=== PATIENT | female | born 1990 ===

== ENCOUNTER 2017-02-18 00:33 | Emergency (ER) | payer OTHER ==
[2017-02-18 01:14] LABS: Basophils % (Auto) 1.1 % (0.0-1.8); Eosinophils % (Auto) 2.3 % (0.0-4.3); Hematocrit 36.9 % (30.3-42.9); Hemoglobin 12.1 gm/dl (10.1-14.3); Mean Corpuscular HGB Conc 33 % (30-34); Mean Corpuscular Hemoglobin 28 pg (28-32); Mean Corpuscular Volume 84 fl (79-97); Platelet Count 304 K/mm3 (140-440); Red Blood Count 4.38 M/mm3 (3.65-5.03); Red Cell Distribution Width 13.1 % (13.2-15.2); White Blood Count 7.7 K/mm3 (4.5-11.0)
[2017-02-18 02:22] LABS: Bacteria,Urine 2+ /HPF (Negative); Bilirubin,Urine NEG (Negative); Blood,Urine LG (Negative); Ketones,Urine NEG (Negative); Leukocyte Esterase,Urine SM (Negative); Mucus,Urine FEW /HPF; Nitrite,Urine POS (Negative); Protein,Urine <15 mg/dL mg/dL (Negative); Urobilinogen,Urine < 2.0 mg/dL (<2.0)
--- NOTE | 2017-02-18 02:27 | Emergency Department Report ---
HPI - General Chief Complaint: Vaginal Bleeding Time Seen by Provider: 02/18/17 02:09 - HPI HPI: This is a 26-year-old AA female presents to the emergency department with complaint of some mild vaginal bleeding that started today after she missed her last 2 menstrual cycles. She also says that she took a test on Monday, 3-4 days ago, and it was positive at home at that time. She has a very small amount of abdominal or pelvic cramping. She says that the bleeding is very mild and she mostly noticed it when she wiped herself after urination. She denies any dysuria, vaginal discharge, back pain, fever, nausea or vomiting. She does not currently have a TEST INSPECTION ENGINEER or primary care physician. She did not take anything for her symptoms prior to presentation. ED Past Medical Hx - Past Medical History Previous Medical History?: No - Surgical History Past Surgical History?: No - Social History Smoking Status: Current Every Day Smoker Substance Use Type: None - Medications Home Medications: Home Medications Medication Instructions Recorded Confirmed Last Taken Type No Known Home Medications [No 02/18/17 02/18/17 Unknown History Reported Home Medications] ED Review of Systems ROS: Stated complaint: VAG BLEED Other details as noted in HPI Comment: All other systems reviewed and negative Constitutional: denies: chills, fever Eyes: denies: eye pain, eye discharge, vision change ENT: denies: ear pain, throat pain Respiratory: denies: cough, shortness of breath, wheezing Cardiovascular: denies: chest pain, palpitations Gastrointestinal: denies: nausea, vomiting, diarrhea Genitourinary: other (vaginal bleeding). denies: urgency, dysuria, discharge Musculoskeletal: denies: back pain, joint swelling, arthralgia Skin: denies: rash, lesions Neurological: denies: headache, weakness, paresthesias Physical Exam - Physical Exam Vital Signs: Vital Signs 02/18/17 02/18/17 02/18/17 00:48 02:01 02:07 Temperature 98 F Pulse Rate 95 H Respiratory 16 18 Rate Blood Pressure 120/72 99/70 O2 Sat by Pulse 100 100 Oximetry Physical Exam: GENERAL: The patient is well-developed well-nourished. HENT: Normocephalic. Atraumatic. Patient has moist mucous membranes. EYES: Extraocular motions are intact. Pupils equal reactive to light bilaterally. NECK: Supple. Trachea is midline. CHEST/LUNGS: Clear to auscultation. There is no respiratory distress noted. HEART/CARDIOVASCULAR: Regular. There is no tachycardia. There is no murmur. ABDOMEN: Abdomen is soft, nontender. Patient has normal bowel sounds. There is no abdominal distention. SKIN: Skin is warm and dry. NEURO: The patient is awake, alert, and oriented. The patient is cooperative. The patient has no focal neurologic deficits. The patient has normal speech. MUSCULOSKELETAL: There is no tenderness or deformity. There is no limitation range of motion. There is no evidence of acute injury. ED Course Vital Signs 02/18/17 02/18/17 02/18/17 00:48 02:01 02:07 Temperature 98 F Pulse Rate 95 H Respiratory 16 18 Rate Blood Pressure 120/72 99/70 O2 Sat by Pulse 100 100 Oximetry ED Medical Decision Making - Lab Data Result diagrams: 02/18/17 01:01 02/18/17 02:28 - Medical Decision Making The patient presents with missing her two last menstrual cycles and now with a very small amount of vaginal bleeding and cramping. Labs unremarkable. She was negative for with both a urine test as well as a quantitative beta hCG. She does not have any urinary tract infection. The rest of labs are unremarkable as well. Vital signs stable throughout her ED course. This could be the start of the patient's menstrual cycle but also may just be dysfunctional uterine bleeding. However she appears safe for discharge home at this time. She was given referrals for TEST INSPECTION ENGINEER. She will return to the ER with any worsening of her symptoms or any acute distress. - Differential Diagnosis , fibroids, dysfunctional uterine bleeding, UTI Critical Care Time: No Critical care attestation.: If time is entered above; I have spent that time in minutes in the direct care of this critically ill patient, excluding procedure time. ED Disposition Clinical Impression: Dysfunctional uterine bleeding Disposition: DC-01 TO HOME OR SELFCARE Is pt being admited?: No Condition: Good Instructions: Dysfunctional Uterine Bleeding (ED) Additional Instructions: Please follow up with an TEST INSPECTION ENGINEER in the next few days. Return to the emergency Department with any worsening of your symptoms or any acute distress. Referrals: [facility] [Provider Group] - 3-5 Days [facility] [Provider Group] - 3-5 Days [facility] [Provider Group] - 3-5 Days Time of Disposition: 03:23
[2017-02-18 03:07] LABS: Anion Gap 16 mmol/L; BUN/Creatinine Ratio 16; Blood Urea Nitrogen 11 mg/dL (7-17); Calcium 9.2 mg/dL (8.4-10.2); Carbon Dioxide 25 mmol/L (22-30); Chloride 100.2 mmol/L (98-107); Glucose 92 mg/dL (65-100); Potassium 3.8 mmol/L (3.6-5.0); Sodium 137 mmol/L (137-145)
[2017-02-18 03:30] VITALS: BP 117/74
== END 2017-02-18 03:29 | disposition home or self-care (01) ==
LOC: ED 00:33
DX: N93.8 Other specified abnormal uterine and vaginal bleeding (principal); F17.200 Nicotine dependence, unspecified, uncomplicated
CPT/HCPCS: 36415; 80048; 81001; 84702; 84703; 85025; 99283